=== PATIENT | male | born 1985 | race Caucasian/White ===

== ENCOUNTER 2017-02-13 11:00 | Emergency (ER) | payer OTHER, MEDICAID ==
[2017-02-13 11:15] VITALS: RESP 18; O2SAT 97
--- NOTE | 2017-02-13 12:19 | CPEKG ---
Heart Rate: 73 RR Interval: 822 P-R Interval: 160 QRSD Interval: 100 QT Interval: 348 QTC Interval: 384 P Moro: 62 QRS Moro: 123 T Wave Moro: 34 EKG Severity - BORDERLINE ECG - EKG Impression: SINUS RHYTHM EKG Impression: CONSIDER RIGHT VENTRICULAR HYPERTROPHY Electronically Signed By: Tre Saldana 15-Feb-2017 06:44:32
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
[2017-02-13 12:36] VITALS: BP 132/82; PULSE 75; TEMP 98.2
== END 2017-02-13 12:31 | disposition home or self-care (01) ==
LOC: CED 11:00
DX: R07.89 Other chest pain (principal); F41.9 Anxiety disorder, unspecified; F17.200 Nicotine dependence, unspecified, uncomplicated
CPT/HCPCS: 71020-PO